=== PATIENT | female | born 1945 | race Caucasian/White ===

== ENCOUNTER 2020-01-31 18:03 | Emergency (ER) | payer MEDICARE, OTHER ==
[2020-01-31] MEDS ORDERED: Acetaminophen 325 MG Tab PO ONE (18:39)
--- NOTE | 2020-01-31 19:41 | EDM.PDOC ---
ED HPI GENERAL MEDICAL PROBLEM - General Chief Complaint: Head Injury Stated Complaint: FELL ON LEFT SIDE OF FACE Time Seen by Provider: 01/31/20 18:30 Source of Information: Reports: Patient, RN Notes Reviewed - History of Present Illness INITIAL COMMENTS - FREE TEXT/NARRATIVE: 74 yr old female fell to the ground just outside [facility] delivering a meal for her . She does not recall feeling dizzy or lightheaded, may have tripped, unsure of what happened. [place] mildly dizzy briefly, no chest pain , nausea, vomiting, diaphoresis or severe dizziness. She did bruise her L eye, mild abrasion L nose and both hands. No chest or abd pain. No Zarate, neck or back pain. Left Eye Pain Score (Numeric/FACES): 1 - Related Data Allergies Allergy/AdvReac Type Severity Reaction Status Date / Time No Known Allergies Allergy Verified 01/31/20 18:27 Home Meds: Home Meds Insulin Lispro [HumaLOG] 8 unit SQ ACBED 01/31/20 [History] lisinopriL [Lisinopril] 20 mg PO DAILY 01/31/20 [History] metFORMIN [Glucophage XR] 1,000 mg PO BIDMEALS 01/31/20 [History] Past Medical History HEENT History: Reports: None Cardiovascular History: Reports: None Respiratory History: Reports: None Gastrointestinal History: Reports: None Genitourinary History: Reports: None STAFF PHYSICAL THERAPY ASSISTANT History: Reports: Other (See Below) Other STAFF PHYSICAL THERAPY ASSISTANT History: hysterectomy Musculoskeletal History: Reports: None Neurological History: Reports: None Psychiatric History: Reports: None Endocrine/Metabolic History: Reports: None Hematologic History: Reports: None Immunologic History: Reports: None Oncologic (Cancer) History: Reports: None Dermatologic History: Reports: None Social & Family History - Tobacco Use Smoking Status *Q: Never Smoker - Recreational Drug Use Recreational Drug Use: No ED ROS GENERAL - Review of Systems Review Of Systems: See Below Constitutional: Denies: Diaphoresis HEENT: Reports: Other (Mild discomfort L nose and around L eye). Denies: Ear Discharge, Eye Pain, Nosebleed Respiratory: Denies: Shortness of Breath Cardiovascular: Denies: Chest Pain GI/Abdominal: Denies: Abdominal Pain, Nausea, Vomiting Musculoskeletal: Denies: Neck Pain, Back Pain, Leg Pain, Joint Pain Skin: Reports: Other (small abrasion L medial nose) Neurological: Denies: Headache, Numbness, Tingling, Trouble Speaking, Difficulty Walking, Weakness ED EXAM, HEAD INJURY - Physical Exam Exam: See Below General Appearance: Alert, No Apparent Distress Head: Facial Ecchymosis (there is localized bruising around the L eye) Eyes: Bilateral Eye: PERRL Nose: Other (abrasion medial nose, no visible swelling, no bony tenderness) Throat/Mouth: Normal Inspection Neck: Non-Tender, Full Range of Motion Respiratory: No Respiratory Distress Extremities: Normal Inspection, Other (nontender, good ROM without pain upper and lower extrem. ) Neurologic: No Motor/Sensory Deficits, Normal Mood/Affect, Oriented x 3 Skin: Warm/Dry EKG INTERPRETATION EKG Date: 01/31/20 Rhythm: NSR [place]: Normal P-Wave: Present QRS: Other (q waves inf. leads) ST-T: Normal Course - Vital Signs Last Recorded V/S: Last Vital Signs Temp 98.3 F 01/31/20 18:21 Pulse 72 01/31/20 18:21 Resp 18 01/31/20 18:21 BP 192/75 H 01/31/20 18:21 Pulse Ox 94 L 01/31/20 18:21 - Orders/Labs/Meds Orders: Active Orders 24 hr Category Date Time Status EKG 12 Lead [EKG Documentation Completion] [RC] STAT Care 01/31/20 18:39 Active Labs: Laboratory Tests 01/31/20 01/31/20 Range/Units 18:25 18:25 WBC 8.81 (3.98-10.04) K/mm3 RBC 5.62 H (3.98-5.22) M/mm3 Hgb 13.9 D (11.2-15.7) gm/dl Hct 43.4 (34.1-44.9) % MCV 77.2 L (79.4-94.8) fl MCH 24.7 L (25.6-32.2) pg MCHC 32.0 L (32.2-35.5) g/dl RDW Std Deviation 44.6 (36.4-46.3) fL Plt Count 247 (182-369) K/mm3 MPV 11.1 (9.4-12.3) fl Neut % (Auto) 68.9 (34.0-71.1) % Lymph % (Auto) 18.6 L (19.3-51.7) % [place] % (Auto) 8.1 (4.7-12.5) % Eos % (Auto) 3.6 (0.7-5.8) Baso % (Auto) 0.6 (0.1-1.2) % Neut # (Auto) 6.07 (1.56-6.13) K/mm3 Lymph # (Auto) 1.64 (1.18-3.74) K/mm3 [place] # (Auto) 0.71 H (0.24-0.36) K/mm3 Eos # (Auto) 0.32 (0.04-0.36) K/mm3 Baso # (Auto) 0.05 (0.01-0.08) K/mm3 Sodium 139 (136-145) mEq/L Potassium 4.1 (3.5-5.1) mEq/L Chloride 102 (98-107) mEq/L Carbon Dioxide 29 (21-32) mEq/L Anion Gap 12.1 (5-15) BUN 17 (7-18) mg/dL Creatinine 0.8 (0.55-1.02) mg/dL Est Cr Clr Drug Dosing 48.06 mL/min Estimated GFR (MDRD) > 60 (>60) mL/min BUN/Creatinine Ratio 21.3 H (14-18) Glucose 143 H (83-115) mg/dL Calcium 9.1 (8.5-10.1) mg/dL Total Bilirubin 0.4 (0.2-1.0) mg/dL AST 14 L (15-37) U/L ALT 22 (14-59) U/L Alkaline Phosphatase 67 (46-116) U/L Total Protein 7.3 (6.4-8.2) g/dl Albumin 3.7 (3.4-5.0) g/dl Globulin 3.6 gm/dL Albumin/Globulin Ratio 1.0 (1-2) Meds: Medications Discontinued Medications Generic Name Dose Route Start Last Admin Trade Name Freq PRN Reason Stop Dose Admin Acetaminophen 975 mg 01/31/20 18:39 01/31/20 18:57 Tylenol PO 01/31/20 18:40 975 mg NOW ONE Administration - Re-Assessments/Exams Free Text/Narrative Re-Assessment/Exam: 01/31/20 20:05 labs did come back nl, she has been in sinus rythm, no ectopy, resting comfortably, she is not on any blood thinner, no Zarate, confussion, nausea or prolonged dizziness. Head CT no done. Discharge instr. as documented. Departure - Departure Time of Disposition: 19:50 Disposition: Home, Self-Care 01 Condition: Fair Clinical Impression: Fall, Contusion of face - Discharge Information Referrals: Joy Miller, [facility] [Primary Care Provider] - Forms: ED Department Discharge Additional Instructions: Ice packs and elevation as needed for swelling. Tylenol 2 to 3 times daily if needed for pain. The bruising of your L eye and face will get worse, maybe much worse before it gets better over the next 7 to 10 days. Return to ED as needed if symptoms worsening in any other way. Sepsis Event Note - Evaluation Sepsis Screening Result: No Definite Risk - Focused Exam Vital Signs: Vital Signs Temp Pulse Resp BP Pulse Ox 01/31/20 18:21 98.3 F 72 18 192/75 H 94 L Date Exam was Performed: 01/31/20 Time Exam was Performed: 19:55 - My Orders Last 24 Hours: My Active Orders 01/31/20 18:39 EKG 12 Lead [EKG Documentation Completion] [RC] STAT - Assessment/Plan Last 24 Hours: My Active Orders 01/31/20 18:39 EKG 12 Lead [EKG Documentation Completion] [RC] STAT
== END 2020-01-31 19:58 | disposition home or self-care (01) ==
LOC: JD.ED 18:03
DX: S00.83XA Contusion of other part of head, initial encounter (principal); S00.31XA Abrasion of nose, initial encounter; Z79.4 Long term (current) use of insulin; Z79.899 Other long term (current) drug therapy; Z90.710 Acquired absence of both cervix and uterus; W19.XXXA Unspecified fall, initial encounter
CPT/HCPCS: 36415; 80053; 85025; 93005; 99284; A9270; 93010; 99282

== ENCOUNTER 2024-06-03 07:15 | Day surgery (SDC) | payer MEDICARE, OTHER ==
[~2024-06-03 07:15] MED LIST: Sodium Chloride 0.9% 10 ML Syringe FLUSH PRN; Sodium Chloride 0.9% 10 ML Syringe FLUSH SCH
[2024-06-03] MEDS ORDERED: Propofol 200 MG/20 ML SDV ONE ×2 (07:30→08:46)
[2024-06-03] MEDS ORDERED: fentaNYL 100 MCG/2 ML SDV ONE (07:31)
[2024-06-03] MEDS ORDERED: ceFAZolin 2 GM Vial ONE (07:31)
[2024-06-03] MEDS ORDERED: Ropivacaine 0.5% 5 MG/ML 30 ML SDV ONE (07:33)
[2024-06-03] MEDS ORDERED: Dexamethasone 4 MG/ML 5 ML MDV ONE (07:34)
[2024-06-03] MEDS ORDERED: dexmedeTOMIDine HCl 200 MCG/2 ML SDV ONE (07:34)
[2024-06-03] MEDS: Lactated Ringers 1,000 ML IV SCH (07:40)
[2024-06-03] MEDS ORDERED: EPINEPHrine 1 MG/ML SDV ONE (07:40)
[2024-06-03] MEDS ORDERED: ePHEDrine 50 MG/ML SDV ONE (08:24)
[2024-06-03] MEDS ORDERED: Triamcinolone Acetonide 40 MG/ML 1 ML SDV ONE (08:50)
[2024-06-03] MEDS ORDERED: Ondansetron 4 MG/2 ML SDV ONE (09:24)
[2024-06-03] MEDS: Morphine 8 MG, EPINEPHrine 0.3 MG, Cefuroxime 750 MG, Ketorolac 30 MG, Sodium Chloride ... PRN (09:28)
[2024-06-03] MEDS: Bupivacaine 0.25% 10 ML SDV ONE (09:28)
[2024-06-03] MEDS: Triamcinolone Acetonide 40 MG/ML 1 ML SDV ONE (09:28)
[2024-06-03] MEDS ORDERED: Lactated Ringers 1,000 ML ONE (09:32)
[2024-06-03] MEDS: Vancomycin 1 GM SDV ONE (09:38)
[2024-06-03] MEDS: Tranexamic Acid 1,000 MG/10 ML Vial ONE (09:38)
[2024-06-03] MEDS ORDERED: fentaNYL 100 MCG/2 ML SDV IVPUSH PRN (10:27)
[2024-06-03] MEDS ORDERED: HYDROmorphone 0.5 MG/0.5 ML Syringe IVPUSH PRN (10:27)
[2024-06-03] MEDS: Acetaminophen/HYDROcodone 325-5 MG Tab PO ONE (14:15)
== END 2024-06-03 15:20 | disposition home or self-care (01) ==
LOC: JD.SDS 07:15
PROVIDERS: ATTEND Orthopaedic Surgery
DX: M17.0 Bilateral primary osteoarthritis of knee (principal); E11.21 Type 2 diabetes mellitus with diabetic nephropathy; E11.42 Type 2 diabetes mellitus with diabetic polyneuropathy; K21.9 Gastro-esophageal reflux disease without esophagitis; I10 Essential (primary) hypertension; E78.2 Mixed hyperlipidemia; Z79.4 Long term (current) use of insulin; Z79.84 Long term (current) use of oral hypoglycemic drugs; Z79.899 Other long term (current) drug therapy
CPT/HCPCS: 01402; 64447; 73560-26-LT; 73560-LT; 97110-GP; 97116-GP; 97161-GP; 99100; A9270-GY; C1713; C1776; J0171; J0665; J0690; J0697; J1100; J1885; J2270; J2405; J2704; J2795; J3010; J3301; J3370; J3490; J7120

== ENCOUNTER 2025-06-28 08:00 | Day surgery (SDC) | payer MEDICARE, OTHER ==
[~2025-06-28 08:00] MED LIST changes: +Lactated Ringers 1,000 ML IV SCH
[2025-06-28] MEDS ORDERED: Lactated Ringers 1,000 ML IV ONE (08:01)
[2025-06-28] MEDS ORDERED: propofoL 500 MG/50 ML 50 ML ONE (08:33)
[2025-06-28] MEDS ORDERED: Phenylephrine 1% 10 MG/ML SDV ONE (08:36)
[2025-06-28] MEDS ORDERED: fentaNYL 100 MCG/2 ML SDV ONE (08:41)
[2025-06-28] MEDS ORDERED: Ondansetron 4 MG/2 ML SDV ONE (08:42)
[2025-06-28] MEDS ORDERED: Ropivacaine 0.5% 5 MG/ML 30 ML SDV ONE (09:00)
[2025-06-28] MEDS: Morphine 8 MG, EPINEPHrine 0.3 MG, Cefuroxime 750 MG, Ketorolac 30 MG, Sodium Chloride ... PRN (10:27)
[2025-06-28] MEDS ORDERED: Propofol 200 MG/20 ML SDV ONE (10:28)
== END 2025-06-28 15:30 | disposition home or self-care (01) ==
LOC: JD.SDS 08:00
PROVIDERS: ATTEND Orthopaedic Surgery
DX: M17.11 Unilateral primary osteoarthritis, right knee (principal); K21.9 Gastro-esophageal reflux disease without esophagitis; I10 Essential (primary) hypertension; E11.21 Type 2 diabetes mellitus with diabetic nephropathy; E11.42 Type 2 diabetes mellitus with diabetic polyneuropathy; Z79.84 Long term (current) use of oral hypoglycemic drugs; Z79.899 Other long term (current) drug therapy
CPT/HCPCS: 0055T; 27447; 64447; 73560; 97116; 97161; 97530; A9270; C1713; C1776; J0169; J0690; J0697; J1885; J2272; J2371; J2405; J2704; J2795; J3010; J3373; J7120